=== PATIENT | female | born 1945 | race Caucasian/White ===

== ENCOUNTER → 2022-01-07 14:50 | Outpatient (BNVA) | payer MEDICARE, MEDICAID, SELFPAY | PROVIDERS: PCP Internal Medicine Geriatric Medicine; Referring Provider Internal Medicine Geriatric Medicine; Visit Provider Internal Medicine | DX: R07.2 Precordial pain (principal); I31.3 Pericardial effusion (noninflammatory); E11.8 Type 2 diabetes mellitus with unspecified complications; F17.210 Nicotine dependence, cigarettes, uncomplicated | CPT/HCPCS: 93005; 99202 ==

== ENCOUNTER 2023-02-02 12:52 | Outpatient (REF) | payer MEDICARE, MEDICAID, SELFPAY ==
--- NOTE | ~2023-02-02 | XR_ITS ---
EXAMINATION: XR LUMBOSACRAL SPINE CLINICAL INFORMATION: Lower back pain of one week's duration. COMPARISON: Radiographs dated 08/08/2018. TECHNIQUE: AP and lateral views of the lumbar spine and lateral view of the lumbosacral junction. FINDINGS: There is bony demineralization. There is a mild to moderate lumbar rotatory dextroscoliosis. The lumbar disc spaces are well-maintained. No acute fracture or spondylolisthesis is seen. There is multi-level mild thoracolumbar spondylosis. The posterior elements are intact. There are aortoiliac atherosclerotic calcified. There are right upper quadrant surgical clips. XR/XR lumbar spine 2-3V IMPRESSION: 1. No acute fracture or spondylolisthesis is seen. 2. The lumbar disc spaces are well-maintained. 3. There is multi-level lumbar spondylosis. 4. There is a mild to moderate lumbar rotatory dextroscoliosis.
== END 2023-02-02 12:53 | disposition home or self-care (01) ==
LOC: HO.HHCX 12:52
PROVIDERS: Visit Provider Internal Medicine Geriatric Medicine
DX: M54.50 Low back pain, unspecified (principal)
CPT/HCPCS: 72100

== ENCOUNTER → 2023-02-24 13:13 | Outpatient (REF) | payer MEDICARE, MEDICAID, SELFPAY ==
--- NOTE | 2023-02-24 13:16 | CA_ITS ---
Transthoracic Echocardiogram Patient (Last, First, Middle): Olesya Cruz, Gender: Female Date of : 1945 Age: 77 Procedure Date: 02/24/2023 Procedure Type: Transthoracic Echocardiogram Location: OP Height: 152.4 cm Weight: 53.52 kg BSA: 1.49 m2 Heart Rate: bpm BP: 122 / 60 mmHg Director Of Revenue: AMELIA Referring MD: Robin Cardenas MD Stock Parts Inspector: John Clark MD Symptoms: HYPOTHYROIDISM WITH PERICARDIAL EFFUSION Study Quality: Fair ECG Rhythm: Sinus Conclusions: - 1. Normal LV systolic function with impaired relaxation filling pattern 2. Normal cardiac valvular Doppler 3. Normal RV systolic pressure 4. Small generalized pericardial effusion Findings Left Ventricle Normal left ventricular size, thickness, and systolic function. The visually estimated ejection fraction is between 55-60%. Spectral Doppler is indicative of an impaired relaxation filling pattern. E/E prime ratio is between 8 and 15 consistent with indeterminate filling pressures. Right Ventricle Normal right ventricular cavity size and systolic function. Atria Both atria are normal in size. There is no evidence of interatrial shunt. Aortic Valve Normal aortic valve structure and function. There is no aortic valve stenosis. There is no aortic valve regurgitation. Mitral Valve Normal mitral valve structure and function. There is trace mitral valve regurgitation. There is no mitral valve stenosis. Pulmonic Valve The pulmonic valve is likely normal. There is trace pulmonic valve regurgitation. Tricuspid Valve Normal tricuspid valve structure. There is trace tricuspid valve regurgitation. The right ventricular systolic pressure is normal. The right ventricular systolic pressure is 17 mmHg. Normal right atrial pressure. There is no evidence of pulmonary hypertension. Great Vessels All visible segments of the aorta are normal in size. The pulmonary artery was not well visualized. Venous The inferior vena cava is normal in size and collapses greater than 50% with inspiration. Pericardium/Pleural There is a small circumferential pericardial effusion. There are no definitive echocardiographic findings of tamponade physiology. Prior Study Comparison No significant change compared to prior study dated: 12/16/2018. Measurements 2D Linear Measurements IVSd: 1.01 0.6-0.9/0.6-1.0 cm LVIDd: 3.89 3.9-5.3/4.2-5.9 cm LVIDd Index: 2.61 2.4-3.2/2.2-3.1 cm/m2 LVIDs: 2.88 2.0-3.6 cm LVPWd: 1.06 0.7-1.1 cm Ao Root: 2.90 2.1-3.5 cm LA Diam: 3.10 2.7-3.8/3.0-4.0 cm LAIDs Index: 2.08 1.5-2.3 cm/m2 LV Mass: 158.96 67-162/88-224 g LV Mass Index: 106.68 43-95/49-115 g/m2 LVOT Diam: 2.00 3.0+(-)1.3 cm 2D Systolic Function EF 4C: 57.90 >55% Mitral Valve MV Pk E: 0.50 MV PK A: 0.69 MV Decel Time: 216.00 E/A: 0.70 E'Lateral: 4.46 E'Medial: 4.13 E/E' Med: 12.20 E/E' Lat: 11.30 PHT: 63.00 MVA PHT: 3.49 Decel Summit: 2.33 Aortic Valve AoV Pk Abad: 1.19 AoV Mn Abad: 0.76 AoV VTI: 0.29 AoV Pk Grad: 6.00 Aov Mn Grad: 3.00 AMBREEN Cont.VTI: 2.12 LVOT LVOT Pk Abad: 0.93 LVOT Mn Abad: 0.55 LVOT VTI: 0.20 LVOT Pk Grad: 3.00 LVOT Mn Grad: 2.00 LVOT Diam: 2.00 LVOT Area: 3.14 Diastolic Function MV Pk E: 0.50 MV Pk A: 0.69 E/A: 0.70 E'Medial: 4.13 E/E' Med: 12.20 E' Laterial: 4.46 E/E' Lat: 11.30 Right Ventricle TAPSE (mm): 17.00 TVS' Abad: 7.00 Tricuspid Valve TR Pk Abad: 1.89 TR Pk Grad: 14.00 RA Press: 3.00 RVSP: 17.00 Great Vessels Aorta Ao Root-2D: 2.90 2.0-3.7 cm Ao Asc: 3.00 2.1-3.4 cm Pulmonary Valve PV Pk Abad: 0.74 Peak PV Grad: 2.00 Updated in Other Vendor System with Status of Final John Clark MD electronically signed on 02/24/2023 3:52:08 PM with status of Final
== END ==
LOC: HO.CARD 13:13
PROVIDERS: Visit Provider Internal Medicine Geriatric Medicine
DX: E03.9 Hypothyroidism, unspecified (principal)
CPT/HCPCS: 93306

== ENCOUNTER 2023-06-16 13:19 | Outpatient (REF) | payer MEDICARE, MEDICAID, SELFPAY ==
--- NOTE | ~2023-06-16 | XR_ITS ---
EXAMINATION: XR CHEST CLINICAL INFORMATION: Tobacco use COMPARISON: 12/17/2017 TECHNIQUE: 2 views of the chest were obtained. FINDINGS: There is no gross pneumothorax. Heart size is normal. Levoscoliosis of the lumbar spine with multilevel degenerative changes. Surgical clips in the right upper quadrant of the abdomen. Lungs are well-inflated. No pleural effusion. There is no focal consolidation to suggest pneumonia. XR/XR chest 2V IMPRESSION: No evidence of pneumonia.
[2023-06-16 16:52] LABS: TSH reflex Free T4 29.87 uIU/mL (0.32-4.0)
[2023-06-16 17:36] LABS: Free T4 (Free Thyroxine) 0.51 ng/dL (0.71-1.85)
== END 2023-06-16 13:20 | disposition home or self-care (01) ==
LOC: HO.HHCL 13:19
PROVIDERS: Visit Provider Internal Medicine Geriatric Medicine
DX: E03.9 Hypothyroidism, unspecified (principal)
CPT/HCPCS: 36415; 71046; 84439; 84443

== ENCOUNTER 2024-10-09 13:42 | Outpatient (REF) | payer MEDICARE, MEDICAID, SELFPAY ==
--- OUTSIDE RECORDS SUMMARY | 2024-10-09 14:49 | XMS_ITS | Clinical Summary ---
Author Organization [employer] Address [address] [place] [address] Care Team Providers Care Glove Tagger Name Role Phone Name, Robin CLEVELAND Primary Care Provider [phone] Allergies No known active allergies Medications glucose blood (Hedgeye Risk ManagementTouch Ultra) test strip at bed time. 1 Active Januvia 50 MG tabletIndications: Type 2 diabetes mellitus without complication, without long-term current use of insulin ([facility]),Cough in adult,Medical non-compliance,Hyp othyroidism, unspecified type,High cholesterol TAKE 1 TABLET BY MOUTH EVERY DAY IN THE MORNING 90 tablet 1 4 Active fluticasone (Flonase) 50 MCG/ACT nasal spray SPRAY 2 SPRAYS INTO EACH NOSTRIL EVERY MORNING. SHAKE GENTLY. PRIME BEFORE FIRST USE AND CLEAN TIP/REPLACE CAP 48 mL 4 Active pravastatin (Pravachol) 20 MG tabletIndications: High cholesterol TAKE 1 TABLET BY MOUTH EVERY DAY IN THE MORNING 90 tablet 1 4 Active levothyroxine (Synthroid, Levoxyl) 50 MCG tabletIndications: Acquired hypothyroidism TAKE 1 TABLET BY MOUTH EVERY DAY BEFORE BREAKFAST 90 tablet 1 4 Active albuterol 108 (90 Base) MCG/ACT inhalerIndications :Tobacco use Inhale 2 puffs every 4 (four) hours if needed for wheezing. INHALE 2 PUFFS EVERY 4 HOURS IF NEEDED FOR WHEEZING. 18 g 11 4 Active Active Problems Problem Noted Date Diagnosed Date Tobacco use 04/27/2023 Medical non-compliance 08/06/2022 Pericardial effusion 11/09/2018 Chronic diarrhea 08/04/2018 Chronic low back pain 08/04/2018 Mild intermittent asthma 08/04/2018 Allergic rhinitis 06/13/2015 Cataract 06/13/2015 COPD (chronic obstructive pulmonary disease) Depression 06/13/2015 Fatty liver 06/13/2015 Overview (04/27/2023): US 11/15/12 Hyperlipidemia 06/13/2015 Migraine 06/13/2015 Osteopenia 06/13/2015 Overview (04/27/2023): DEXA 08/2011 Vitamin D deficiency 06/13/2015 Hypothyroidism 05/21/2015 Overview (04/27/2023): [facility] per transfer records Type 2 diabetes mellitus with cataract 5 HTN (hypertension) 05/21/2015 Encounters Date Type Department Care Team Description 10/09/2024 1:30 PM EST Office Visit [facility] [address] [place] [id number] Robin Cardenas MD Type 2 diabetes mellitus without complication, without long-term current use of insulin ([facility]) (Primary Dx); Hypothyroidism, unspecified type; Hypertension, unspecified type; Tobacco use; Medical non-compliance 10/09/2024 Travel 08/04/2024 Telephone [facility] [address] [place] [address] [phone] Bertram [place] 07/18/2024 Telephone [facility] [address] [place], [place] [phone] Robin Cardenas MD Lab Orders from Last 3 Months Immunizations Name Administration Dates Next Due Influenza, IIV3, injectable 05/21/2015 Pfizer Covid-19 Vaccine 12+ 05/21/2015 Pneumococcal Conjugate PCV 13 08/07/2016 Pneumococcal Polysaccharide PPSV23 05/13/2017 Tdap 05/21/2015 Social History Tobacco Use Types Packs/Day Years Used Date Smoking Tobacco: Every Day Cigarettes Smokeless Tobacco: Never Tobacco Cessation:Ready to Q uit: Not Asked; Counseling Given: Not Answered Alcohol Use Standard Drinks/Week Comments Never 0 (1 standard drink = 0.6 oz pur e alcohol) Housing Stability Answer Date Recorded What is your housing situation today? I have [place] 06/16/[address] you li ve. Do you have problems with any of the following? None of the above 06/16/2023 Food Insecurity Answer Date Recorded Within the past 12 months, y ou worried that your food would run out before you got money to buy more: Never True 06/16/2023 Within the past 12 months,th e food you bought just didn't last and you didn't have enough money to get more: Never True Transportation Answer Date Recorded In the past 12 months, has l ack of transportation kept you from medical appts, meetings, work or from getting things needed for daily living? No 06/16/2023 Utilities Answer Date Recorded In the past 12 months, has t he electric, gas, oil or water company threatened to shut off services in your home? No 06/16/2023 Depression Answer Date Recorded Patient Health Questionnaire-2 Score 0 09/10/2022 Comments Unknown Sex and Gender Information Value Date Recorded Sex Assigned at Female 06/29/2022 10:16 AM EDT Legal Sex Female 10:16 AM EDT Gender Identity Female 06/29/2022 10:16 AM EDT Sexual Orientation Straight 06/29/2022 10 :16 AM EDT Last Filed Vital Signs Vital Sign Reading Time Taken Comments Blood Pressure 142/79 10/09/2024 1:36 PM EST Pulse 67 10/09/2024 1:20 PM EST Temperature 36.8 ??C (98.2 ??F) 10/09/2024 1:20 PM ES T Respiratory Rate 16 10/09/2024 1:20 PM EST Oxygen Saturation 98% 10/09/2024 1:20 PM EST Inhaled Oxygen Concentration - - Weight 61.2 kg (135 lb) 10/09/2024 1:20 PM EST Height 152.4 cm (5') 05/24/2024 3:05 PM EDT Body Mass Index 26.37 05/24/2024 3:05 PM EDT Plan of Treatment Upcoming Encounters Date Type Department Care Team (Late st Contact Info) Description 11/06/2024 1:30 PM EDT Office Visit [facility] [address] [place] [address] Ирина Mesa, OD [address] [place] [address] Health Maintenance Due Date Last Done Comments Diabetes: Foot Exam 1957 Eye Exam 1957 Alcohol/Substance Use Screening 1959 Hepatitis C Screening 1965 Diabetes: Urine Protein Screening 1966 Hepatitis A Vaccines (1 of 2 - Risk 2-dose series) 1966 Zoster Vaccines (1 of 2) 1997 Hepatitis B Vaccines (1 of 3 - Risk 3-dose series) 2007 RSV Patients and Patients Aged 60 years or older (1 - 1-dose 75+ series) 2022 Lipid Panel 04/09/2023 04/09/2022, 0910/2020, 06/07/2020 Depression Screening 09/10/2023 09/10/2022, 09/10/19 23 SDOH Screening 09/10/2023 09/10/2022 COVID-19 Vaccine (2 - season) 2024 05/21/2015 Influenza Vaccine (#1) 2024 05/21/2015 Diabetes: Hemoglobin A1C 04/08/2025 025, 05/24/2024, 07/13/2023, Additional history exists DTaP/Tdap/Td Vaccines (2 - Td or Tdap) 05/21/2025 05/21/2015 Tobacco Screening 05/24/2025 05/24/2024 Pneumococcal Vaccine: 50+ Years Completed 05/13/2017, 08/07/2016 HIB Vaccines Aged Out No longer eligi ble based on patient's age to complete this topic HPV Vaccines Aged Out No longer eligi ble based on patient's age to complete this topic IPV Vaccines Aged Out No longer eligi ble based on patient's age to complete this topic Meningococcal Vaccine Aged Out No sylvester maria esther eligible based on patient's age to complete this topic RSV under 20 months Aged Out No longe r eligible based on patient's age to complete this topic Rotavirus Vaccines Aged Out No longer eligible based on patient's age to complete this topic Procedures Procedure Name Priority Date/Time Associated Diagnosis Comments POCT GLYCATED HEMOGLOBIN, TOTAL Routine 10/09/2024 1:32 PM EST Type 2 diabetes mellitus without complication, without long-term current use of insulin ([facility]) POCT GLUCOSE Routine 10/09/2024 1:29 PM EST Type 2 diabetes mellitus without complication, without long-term current use of insulin ([facility]) LIPID PANEL, STANDARD Routine 04/09/2022 9:37 AM EDT from Last 3 Months or Most Recently Relevant to Health Maintenance Results * (ABNORMAL) POCT HGB A1C (10/09/2024 1:32 PM EST) [facility] Hemoglobin A1C 6.5(A) 4.0 - 6.0 % QC Media Lot # [id number] Lot# Expiration Date Blood 10/09/2024 1:32 PM EST us Robin Cardenas MD POINT OF CARE TEST ENTER/EDIT OR DERABLES Final Result * POCT Glucose (10/09/2024 1:29 PM EST) [facility] Glucose Blood, POC 141 60 - 200 mg/dL QC Media Lot # [id number] Lot# Expiration Date 5,025 Blood Capillary blood specimen / Unknown 10/09/2024 1:29 PM EST us Robin Cardenas MD POINT OF CARE TEST ENTER/EDIT OR DERABLES Final Result * (ABNORMAL) LIPID PANEL, STANDARD (04/09/2022 9:37 AM EDT) [facility] Chol/HDLC Ratio 5.1(H) <5.0 (calc) [facility] Cholesterol, Total 239(H) <200 mg/dL [facility] HDL Cholesterol 47(L) > OR = 50 mg/dL [facility] LDL Cholesterol 168(H) mg/dL (calc) [facility] Comment: Reference range: <100 ?? Desirable range <100 mg/dL for primary prevention; ?? <70 mg/dL for patients with CHD or diabetic patients ?? with > or = 2 CHD risk factors. ?? LDL-C is now calculated using the Osvaldo ?? calculation, which is a validated novel method providing ?? better accuracy than the Friedewald equation in the ?? estimation of LDL-C. ?? Tim VALENTIN et al. AMARA. 2013;310(19): 2141-5000 ?? (http://Ciafo.On The Bill/faq/LSK833) Non-HDL Cholesterol 192(H) <130 mg/dL (calc) [facility] Comment: For patients with diabetes plus 1 major ASCVD risk ?? factor, treating to a non-HDL-C goal of <100 mg/dL ?? (LDL-C of <70 mg/dL) is considered a therapeutic ?? option. Triglycerides 109 <150 mg/dL [facility] 04/09/2022 9:37 AM EDT us Robin Cadrenas MD LAB BLOOD ORDERABLES Final Resul t [facility] [address] from Last 3 Months or Most Recently Relevant to Health Maintenance Insurance [facility] DUAL COMPLETE * Guarantor: Olesya Hoffman Account Type Relation to Patient Date of Phone Billing Address Personal/Family Self [address], [place] [address] * Guarantor: Olesya Hoffman Account Type Relation to Patient Date of Phone Billing Address Personal/Family Self [address], [place] [address] * Guarantor: Olesya Hoffman Account Type Relation to Patient Date of Phone Billing Address Personal/Family Self [address], [place] [address] Care Teams Glove Tagger Relationship Specialty Start Date End Date Name, MD Robin [address] [place] [address] PCP - General Family Medicine 12/05/15
--- OUTSIDE RECORDS SUMMARY | 2024-10-09 14:49 | XMS_ITS | Encounter Summary ---
Author Organization [employer] Address [address] [place] [address] Care Team Providers Care Register Of Deeds Name Role Phone Name, Robin CLEVELAND Primary Care Provider [phone] Reason for Visit * Reason Comments Med Change Request Encounter Details Date Type Department Care Team ([facility] st Contact Info) Description 02/21/2024 Refill [facility] [address] [place] [address] Name, MD Robin [address] [place], [place] [phone] Tobacco use; Cough in adult Social History Tobacco Use Types Packs/Day Years Used Date Smoking Tobacco: Every Day Cigarettes Smokeless Tobacco: Never Alcohol Use Standard Drinks/Week Comments Never 0 [...] Orientation Straight 06/29/2022 10 :16 AM EDT documented as of this encounter Plan of Treatment Upcoming Encounters Date Type Department Care Team (Late st Contact Info) Description 11/06/2024 1:30 PM EDT Office Visit [facility] [address] [place], [place] [phone] Ирина Mesa, OD [address] [place] [address] documented as of this encounter Visit Diagnoses Diagnosis Tobacco use Cough in adult documented in this encounter Care Teams Register Of Deeds Relationship Specialty Start Date End Date Name, MD Robin [address] [place] [address] PCP - General Family Medicine 12/05/15 documented as of this encounter
--- OUTSIDE RECORDS SUMMARY | 2024-10-09 14:49 | XMS_ITS | Encounter Summary ---
Author Organization [employer] Address [address] [place] [address] [address] [place] [address] Care Team Providers Care Hoop Driving Machine Operator Name Role Phone Name, Robin CLEVELAND Primary Care Provider [phone] Reason for Visit * Reason Onset Date Comments pt1 01/11/2023 Encounter Details Date Type Department Care Team (Late st Contact Info) Description 01/11/2023 Telephone [facility] [address] [place], [place] [phone] Name, MD Robin [address] [place] [address] pt1 Social History Tobacco Use Types Packs/Day Years Used Date Smoking Tobacco: Every Day Cigarettes Smokeless Tobacco: Never Depression Answer Date Recorded Patient Health Questionnaire-2 Score 0 09/10/2022 Comments Unknown Sex and Gender Information Value Date Recorded Sex Assigned at Female 06/29/2022 10:16 AM EDT Legal Sex Female 10:16 AM EDT Gender Identity Female 06/29/2022 10:16 AM EDT Sexual Orientation Straight 06/29/2022 10 :16 AM EDT documented as of this encounter Miscellaneous Notes * Telephone Encounter - Nicholas Blair - 01/11/2023 1:58 PM EDT Tc from pt requesting pt1 Date: 02/02/23 Time:11:30 am address: [facility] specialty: PCP # visits: test desk operator: yes Wheelchair: no documented in this encounter Plan of Treatment Upcoming Encounters Date Type Department Care Team (Late st Contact Info) Description 11/06/2024 1:30 PM EDT Office Visit [facility] [address] [place] [address] Ирина Mesa OD [address] [place] [address] documented as of this encounter Visit Diagnoses Not on filedocumented in this encounter Care Teams Hoop Driving Machine Operator Relationship Specialty Start Date End Date Name, MD Robin [address] [place] [address] PCP - General Family Medicine 12/05/15 documented as of this encounter
--- OUTSIDE RECORDS SUMMARY | 2024-10-09 14:49 | XMS_ITS | Encounter Summary ---
Author Organization [employer] Address [address] [place] [address] Care Team Providers Care Risk Control Analyst Name Role Phone Name, Robin CLEVELAND Primary Care Provider [phone] Encounter Details Date Type Department Care Team (Latest Contact Info) Description 10/09/2024 Travel Social History Tobacco Use Types Packs/Day Years [...] Description 11/06/2024 1:30 PM EDT Office Visit [facility] [address] [place] [address] Ирина Mesa, OD [address] [place] [address] documented as of this encounter Visit Diagnoses Not on filedocumented in this encounter Care Teams Risk Control Analyst Relationship Specialty Start Date End Date Name, MD Robin [address] [place] [address] PCP - General Family Medicine 12/05/15 documented as of this encounter
--- OUTSIDE RECORDS SUMMARY | 2024-10-09 14:49 | XMS_ITS | Encounter Summary ---
Author Organization [employer] Address [address] [place] [address] Care Team Providers Care Drag Seiner Name Role Phone Name, Robin C[place] Primary Care Provider [phone] Reason for Visit * Reason Comments Follow-up Encounter Details Date Type Department Care Team ([facility] st Contact Info) Description 10/09/2024 1:30 PM EST Office Visit [facility] [address] [place] [address] Name, MD Robin [address] [place] [address] Type 2 diabetes mellitus without complication, without long-term current use of insulin ([facility]) (Primary Dx); Hypothyroidism, unspecified type; Hypertension, unspecified type; Tobacco use; Medical non-compliance Social History Tobacco Use Types Packs/Day Years Used Date Smoking Tobacco: Every Day Cigarettes Smokeless Tobacco: Never Alcohol Use Standard Drinks/Week Comments Never 0 (1 standard drink = 0.6 oz pur e alcohol) Housing Stability Answer Date Recorded What is your housing situation today? I have yanilachelle ihll 06/16/[address] you li [...] AM EDT documented as of this encounter Last Filed Vital Signs Vital Sign Reading Time Taken Comments Blood Pressure 142/79 10/09/2024 1:36 PM EST Pulse 67 10/09/2024 1:20 PM EST Temperature 36.8 ??C (98.2 ??F) 10/09/2024 1:20 PM ES T Respiratory Rate 16 10/09/2024 1:20 PM EST Oxygen Saturation 98% 10/09/2024 1:20 PM EST Inhaled Oxygen Concentration - - Weight 61.2 kg (135 lb) 10/09/2024 1:20 PM EST Height - - Body Mass Index 26.37 05/24/2024 3:05 PM EDT documented in this encounter Progress Notes * Robin Cardenas MD - 10/09/2024 1:30 PM EST Subjective Patient ID: Olesya Jones is a 79 y.o. female who presents for Follow-up. Patient comes for a follow-up visit. She is asymptomatic. She continues smoking cigarettes but is cutting down. She has years of hypothyroidism but she does not use her thyroid supplementation daily as prescribed. She tells me she uses the medication 2 or 3 times a week at most. She refuses any vaccination. She refuses any form of cancer screening. She specifically refused referral to low radiation CT scan of the chest, mammograms and colonoscopy. Today her blood pressure was elevated. She recently had a medical visit at home and her blood pressure was 132/74. A1c was 6.4 at home. Her diabetes is diet controlled since she rarely uses Januvia. Review of Systems Constitutional: Negative for chills and fever. HENT: Negative for sore throat. Respiratory: Negative for cough, shortness of breath and wheezing. Cardiovascular: Negative for chest pain, palpitations and leg swelling. Gastrointestinal: Negative for abdominal pain. Visit Vitals BP (!) 142/79 Pulse 67 Temp 98.2 ??F (36.8 ??C) (Oral) Resp 16 Wt 135 lb (61.2 kg) SpO2 98% BMI 26.37 kg/m?? Smoking Status Every Day BSA 1.61 m?? Objective Physical Exam Constitutional: Appearance: Normal appearance. Cardiovascular: Rate and Rhythm: Normal rate and regular rhythm. Heart sounds: No murmur heard. No gallop. Pulmonary: Effort: Pulmonary effort is normal. No respiratory distress. Breath sounds: Normal breath sounds. No wheezing. Musculoskeletal: Right lower leg: No edema. Left lower leg: No edema. Neurological: Mental Status: She is alert. Assessment/Plan Diagnoses and all orders for this visit: Type 2 diabetes mellitus without complication, without long-term current use of insulin ([facility]) Comments: Diet controlled. I recommended to walk daily, avoid sweets and soda. Orders: - POCT Glucose - POCT HGB A1C Hypothyroidism, unspecified type Comments: I recommended to use her levothyroxine daily. I recommend to use levothyroxine in the morning on anempty stomach with water half an hour prior to breakfast. Recheck TSH. Orders: - TSH W/Reflex to FT4; Future Hypertension, unspecified type Comments: Repeat blood pressure was normal. She had normal BP at home. I did not recommend any medication. I recommended to avoid salty foods and walk daily. Tobacco use Comments: She is recommended to quit smoking. Medical non-compliance Comments: She refused any vaccination. documented in this encounter Plan of Treatment Upcoming Encounters Date Type Department Care Team (Late st Contact Info) Description 11/06/2024 1:30 PM EDT Office Visit [facility] OPTOM[facility] [address] [place] [address] MosheИрина, OD [address] [place], [place] [id number] Scheduled Orders Name Type Priority Associated Diagnoses Orde r Schedule TSH W/Reflex to FT4 Lab Routine Hypothyroidism, unspecified type Expected: 10/09/2024 (Approximate), Expires: 10/09/2025 documented as of this encounter Procedures Procedure Name Priority Date/Time Associated Diagnosis Comments POCT GLYCATED HEMOGLOBIN, TOTAL Routine 10/09/2024 1:32 PM EST Type 2 diabetes mellitus without complication, without long-term current use of insulin ([facility]) POCT GLUCOSE Routine 10/09/2024 1:29 PM EST Type 2 diabetes mellitus without complication, without long-term current use of insulin ([facility]) documented in this encounter Results * (ABNORMAL) POCT HGB A1C (10/09/2024 1:32 PM EST) Hemoglobin A1C 6.5(A) 4.0 - 6.0 % QC Media Lot # [id number] Lot# Expiration Date 7,026 Blood 10/09/2024 1:32 PM EST us Robin Cardenas MD POINT OF CARE TEST ENTER/EDIT OR DERABLES Final Result * POCT Glucose (10/09/2024 1:29 PM EST) Glucose Blood, POC 141 60 - 200 mg/dL QC Media Lot # [id number] Lot# Expiration Date [id number] Blood Capillary blood specimen / Unknown 10/09/2024 1:29 PM EST Robin Cardenas MD POINT OF CARE TEST ENTER/EDIT OR DERABLES Final Result documented in this encounter Visit Diagnoses Diagnosis Type 2 diabetes mellitus without complication, without long-term current use of insulin ([facility])- Primary Hypothyroidism, unspecified type Hypertension, unspecified type Tobacco use Medical non-compliance documented in this encounter Care Teams Drag Seiner Relationship Specialty Start Date End Date Name, MD Robin [address] [place] [id number] PCP - General Family Medicine 12/05/15 documented as of this encounter
[2024-10-09 17:47] LABS: Free T4 (Free Thyroxine) < 0.42 ng/dL (0.71-1.85)
== END 2024-10-09 13:43 | disposition home or self-care (01) ==
LOC: HO.HHCL 13:42
PROVIDERS: Visit Provider Internal Medicine Geriatric Medicine
DX: E03.9 Hypothyroidism, unspecified (principal)
CPT/HCPCS: 36415; 84439; 84443

== ENCOUNTER 2025-05-10 11:38 | Outpatient (REF) | payer OTHER, SELFPAY ==
[2025-05-10 13:47] LABS: Alanine Aminotransferase 15 U/L (0-31); Albumin Level 4.1 g/dL (3.5-5.0); Alkaline Phosphatase 67 U/L (39-117); Anion Gap 11 (12-20); Aspartate Amino Transferase 26 U/L (5-31); Blood Urea Nitrogen 11 mg/dL (9-16); Calcium 8.8 mg/dL (8.4-10.2); Carbon Dioxide 27 mmol/L (22-29); Chloride 108 mmol/L (96-108); Cholesterol 253 mg/dL (<200); Estimated Glomerular Filt Rate 47; HDL Cholesterol 45 mg/dL (>40); Potassium 3.3 mmol/L (3.3-5.1); Sodium 143 mmol/L (135-145); Total Protein 7.2 g/dL (6.5-8.0); Triglycerides 103 mg/dL (<150)
[2025-05-10 14:42] LABS: Free T4 (Free Thyroxine) < 0.42 ng/dL (0.71-1.85)
--- OUTSIDE RECORDS SUMMARY | 2025-05-10 16:00 | XMS_ITS ---
Author Name Brian RESPIRATORY CARE FACULTY,OFFICE MACHINES TEACHER,FN P,HORSES OR MULES TEAMSTER, Tiffanie Address [address] [place] [address] Phone [phone] [facility] Care Team Providers Care Boat Rental Clerk Name Role Phone Tiffanie Torres Unavailable [phone] Reason for Referral Not Available Allergies, adverse reactions, alerts No known allergies History of medication use Medication Class Instructions Start Date End Date Levothyroxine Sodium 50 MCG Tab TAKE 1 TABLET BY MOUTH EVERY DAY BEFORE BREAKFAST 2024-05-18 No Data Available Pravastatin Sodium 20 mg Tab TAKE 1 TABL ET BY MOUTH EVERY MORNING 2024-05-18 No Data Available Albuterol Sulfate HFA 108 (9 0 Base) MCG/ACT Aerosol Solution PLEASE SEE ATTACHED FOR DETAILED DIRECTIONS 2024-05-24 No Data Available Fluticasone Propionate 50 MCG/ACT Suspension PLEASE SEE ATTACHED FOR DETAILED DIRECTIONS 2024-03-29 No Data Available Ibuprofen 600 mg Tab 1 tab Q6H PRN Pain 2024-10-20 N o Data Available Problem List Problem Status Onset Date Resolved Date Synopsis Chronic back pain Active 2024-10-20 N/A StableI buprofen PRNROM exercises, OTC medication, and continue with PCP. Type 2 diabetes mellitus with hypercholesterolemia Active 2024-10-20 N/A Stable PravastatinMonitor BG routinely, low carb/fat diet, exercise as tolerable, and continue f/u care and monitoring with PCP. Hypothyroidism Active 2024-10-20 N/A StableLevo thyroxineMonitor for s/sx of uncontrolled hypothyroidism and continue monitoring with PCP. Other problems related to medical facilities and other health care Active 2024-10-20 N/A DIABETES CO NTINGENCY PLANLast updated: 10/20/2024Type 2 DM Member to call for the following symptoms: Blood sugar <70 / Blood sugar >300 / Polydipsia/ PolyuriaPlanned intervention: Encourage adequate water intake/ Elevate legs/ Limit high-sugar and high-carbohydrate foods Senile purpura Active 2024-10-20 N/A StableSkin care, keep moisturized, skin assessments and continue with PCP. Smoker's respiratory syndrome Active 2024-10-20 N/A StableAlbuterol PRN Active smoker some days since 18 y.o.Monitor for s/sx of respiratory distress (eg. SOB), discussed smoking cessation techniques, and continue monitoring with PCP. Encounters Encounters Type Facility Date of Service Diagnosis/Co mplaint New patient, 30-44min 1 stable chronic or 2 minor; add modifier 95 for video, modifier 93 for phone [facility], ([place]) 10/20/2024 Hypothyroidism, unspecifiedType 2 diabetes mellitus with other specified complicationPure hypercholesterolemia, unspecifiedDorsalgia, unspecifiedOther chronic painOther problems related to medical facilities and other health careNicotine dependence, unspecified, uncomplicatedOther nonthrombocytopenic purpura New patient, 30-44min 1 stable chronic or 2 minor; add modifier 95 for video, modifier 93 for [facility], [place]) 10/20/2024 New patient, 30-44min 1 stable chronic or 2 minor; add modifier 95 for video, modifier 93 for [facility], [place]) 10/20/2024 New patient, 30-44min 1 stable chronic or 2 minor; add modifier 95 for video, modifier 93 for [facility], ([place]) 10/20/2024 New patient, 30-44min 1 stable chronic or 2 minor; add modifier 95 for video, modifier 93 for [facility], ([place]) 10/20/2024 New patient, 30-44min 1 stable chronic or 2 minor; add modifier 95 for video, modifier 93 for [facility], ([place]) 10/20/2024 Vital Signs Date of Collection Vitals 2024-10-20 13:13:08 Height - 152.4 cmWei ght - 61.24 kgBody Mass Index (BMI) - 26.37 kg/m2 Social History Social History Social History Observation Description Effec tive Time Current Smoking Status Current some day smoker 2 Sex Female Gender identity Woman History of Procedures Procedures Service Procedure code Service date Servicing provider Phone# New patient, 30-44min 1 stable chronic or 2 minor; add modifier 95 for video, modifier 93 for phone [id number] 2024-10-20 No Data Available No Data Available Medication List Documented (1159F) 1159F 2024-10-20 No Data Available No Data Libby ilable Medication Review by prescribing provider or pharmacist documented (1160F) 1160F 2024-10-20 No Data Available No Data Libby ilable Functional Status Assessed (1170F) 1170F 2024-10-20 No Data Available No Data Avail able Advance Care Directive Advance care planning discussion documented in the medical record (1158F) 1158F 2024-10-20 No Data Available No Data Availa ble Advance care planning discussed and documented advance care plan or surrogate decision-maker was documented in the medical record. (1123F) 1123F 2024-10-20 No Data Available No Data Availa ble Functional Status Functional Category Effective Dates Cognition Status: Oriented to Person, Pl sujatha and Time 2024-10-20 ADL: Bathing Independent , D ressing Independent , Eating Independent , Ambulation Independent , Transferring Independent and Toileting Independent 2024-10-20 IADL: Medication Needs Douglas tance , Meal Prep Needs Assistance , Shopping Needs Assistance , Driving or Public Transport Needs Assistance , Housework Needs Assistance and Finances Needs Assistance 2024-10-20 How many falls within the last 6 months? None 2024-10-20 Near falls within the last 6 months? Non e 2024-10-20 Do you feel unsteady on your feet? No 24-10-20 Do you worry about falling? No 2024-10-01 1 DME used with ambulation: denies. 2-21 Social Supports - # of Inter actions with Friends/Family in a typical week: daughter daily. 2024-10-20 Mental Status Status Date AOx3 2024-10-20 Assessments Date of Service Assessments 2024-10-20 13:13:08 Other problems relat ed to medical facilities and other health careHypothyroidismType 2 diabetes mellitus with hypercholesterolemiaChronic back painSmoker's respiratory syndromeSenile purpura Plan of Care Date of Service Plans 2024-10-20 13:13:08 Medication Review by prescribing provider or pharmacist documented (1160F)Medication List Documented (1159F)Functional Status Assessed (1170F)Advance Care Directive Advance care planning discussion documented in the medical record (1158F)New patient, 30-44min 1 stable chronic or 2 minor; add modifier 95 for video, modifier 93 for phoneAdvance care planning discussed and documented advance care plan or surrogate decision-maker was documented in the medical record. (1123F)BMI obtained (3008F)Pain Assessment - NO pain present (1126F)Continue to see PCP. Follow-up with Aneudy as needed for any acute or disease education needs that may arise.DIABETES CONTINGENCY PLANLast updated: 10/20/2024Type 2 DM Member to call for the following symptoms: Blood sugar <70 / Blood sugar >300 / Polydipsia/ PolyuriaPlanned intervention: Encourage adequate water intake/ Elevate legs/ Limit high-sugar and high-carbohydrate foodsStableLevothyroxineMonitor for s/sx of uncontrolled hypothyroidism and continue monitoring with PCP.StablePravastatinMonitor BG routinely, low carb/fat diet, exercise as tolerable, and continue f/u care and monitoring with PCP.StableIbuprofen PRNROM exercises, OTC medication, and continue with PCP.StableAlbuterol PRN Active smoker some days since 18 y.o.Monitor for s/sx of respiratory distress (eg. SOB), discussed smoking cessation techniques, and continue monitoring with PCP.StableSkin care, keep moisturized, skin assessments and continue with PCP. Goals Date Goal 2024-10-20 Remember to adhere t o dietary interventions and exercise as tolerable. 2024-10-20 Contact us if develo ping SOB, HHS, DKA, pain, or health-related concerns. 2024-10-20 Continue taking medi cations as prescribed and f/u care and monitoring with PCP every 3-6 months. Health Concerns Date Concern 2024-10-20 Visit completed by a udio and video. Patient/Guardian agreed to visit via telehealth. Introductory visit with Aneudy to establish care. Today, patient has chief complaint of: establishing care.Reviewed Allergies, Medications, Active Medical conditions, past medical/surgical history, Social history. 2024-10-20 Most recent hospital stay(s) or ER visit(s) and precipitating factors: denies in the last month. 2024-10-20 ACP: no. HCP: yes - Sil Cruz (daughter). Full code. 2024-10-20 Informed verbal cons ent was obtained from this patient to communicate and provide care using virtual and other telecommunications tools. This patient has been explained the risks, if any, related to the encounter. I explained that care provided through video or audio communication cannot replace the need for physical examination or an in-person visit for some disorders or urgent problems.
== END 2025-05-10 11:39 | disposition home or self-care (01) ==
LOC: HO.HHCL 11:38
PROVIDERS: PCP Internal Medicine Geriatric Medicine; Visit Provider Internal Medicine Geriatric Medicine
DX: E03.9 Hypothyroidism, unspecified (principal); E11.36 Type 2 diabetes mellitus with diabetic cataract
CPT/HCPCS: 36415; 80053; 80061; 84439; 84443